=== PATIENT | male | born 1955 | race Caucasian/White ===

== ENCOUNTER 2023-12-11 18:31 | Emergency (ER) | payer BC, SELFPAY ==
[2023-12-11 18:42] VITALS: BP 122/85; PULSE 91; RESP 20; TEMP 36.9; O2SAT 97; BMI 41.1
--- NOTE | 2023-12-11 19:27 | ED.GENADULT ---
HPI - General Adult General Date Seen: 12/11/23 Chief complaint: Unspecified Complaint, Adult Stated complaint: Bluish tinge to both legs Friday, now swollen Time Seen by Provider: 12/11/23 19:03 Source: patient and RN notes reviewed Mode of arrival: ambulatory Limitations: no limitations History of Present Illness HPI narrative: Patient is a 68-year-old male here for evaluation of some swelling in his legs as well as a bluish discoloration. He says he 1st noted the blue color about 5 days ago. It runs from about mid thigh to mid calf in both legs. He says sometimes it is darker sometimes it is credit operations processor. He does not have any pain in the legs. He tells me he has been wearing the same jeans all week, they are not new jeans, and he has never noticed a bluish discoloration before. He did go on a road trip recently and has developed some swelling in his legs as well. He called the nurse line and was advised to come in. He also tells me he has been having some problems with his shoulders since last fall, and sometimes when he wakes up his hands or tingly. He is unsure whether all these are related. He does have borderline diabetes, high blood pressure, high cholesterol, hypothyroid. No history of DVT or PE. Does not smoke. His landlord brought him in. Related Data Home Medications Medication Instructions Recorded Confirmed amlodipine 5 mg tablet 5 mg PO DAILY 07/26/23 07/26/23 atorvastatin 80 mg tablet 80 mg PO DAILY 07/26/23 07/26/23 ketoconazole 2 % topical cream applic topical BID 07/26/23 07/26/23 levothyroxine 88 mcg tablet 88 mcg PO DAILY 07/26/23 07/26/23 lisinopril 20 1 tab PO DAILY 07/26/23 12/11/23 mg-hydrochlorothiazide 25 mg tablet chlorthalidone 25 mg tablet 25 mg PO DAILY 12/11/23 12/11/23 lisinopril 20 mg tablet 20 mg PO DAILY 12/11/23 12/11/23 potassium chloride 20 mEq 20 meq PO BID 12/11/23 12/11/23 tablet,extended release(part/cryst) Previous Rx's Medication Instructions Recorded amoxicillin 500 mg tablet 500 mg PO BID #14 tabs 07/26/23 benzonatate 100 mg capsule 100 mg PO TID PRN cough #30 caps 07/26/23 Allergies Allergy/AdvReac Type Severity Reaction Status Date / Time No Known Drug Allergies Allergy Verified 12/11/23 18:48 Review of Systems Status of ROS: Reports: 10 or more systems reviewed and unremarkable except as noted in History and below [facility] Social History Smoking Status: Never smoker Exam Narrative: Exam Narrative: Vital signs as noted above. In general, an alert, well-appearing patient. Head: Normocephalic, atraumatic. Eyes: Pupils are equal reactive. Extraocular movements are full. Conjunctivae are normal. ENT: Mucous membranes are moist. Throat is normal. Neck: Supple without lymphadenopathy. Heart: Regular rate and rhythm. No murmur or rub. Lungs: Clear bilaterally. No increased work of breathing, crackles or wheezes. Abdomen: Soft and nontender. No organomegaly. Extremities: Legs have a bluish tint to them from mid thigh to mid calf. Legs are warm to the touch throughout. He does have some edema noted in bilateral lower extremities, in the pretibial area. He does not have calf tenderness, pulses are intact, distal CMS is normal. He has no tenderness or palpable cords throughout the legs. Neurologic: Patient is alert and oriented to person and place. Speech is fluent. Face is symmetric. Moves all extremities equally. Affect: Normal. Skin: Warm and dry. Well perfused. Const: Vital Signs, click to edit/add: Vital Signs - 24 hr 12/11/23 18:42 Temperature 98.4 F Pulse Rate [Pulse Oximeter] 91 Respiratory Rate 20 Blood Pressure [Ri ght Upper Arm] 122/85 Pulse Oximetry 97 Oxygen Delivery Me thod Room Air Documenting provider has reviewed patient's vital signs: yes Course Course ED Course: Patient had recent travel and does have a little bit of edema in his legs, this is likely physiologic but I will do a D-dimer, electrolytes, kidney function. With an alcohol swab, I was able to wipe off the bluish discoloration and I do think this is related to transfer from his [facility], not a perfusion issue. Labs are most notable for a potassium of 2.8, review of his medications shows that he had previously been on lisinopril/hydrochlorothiazide, this is been [place] he currently just takes lisinopril but he is now also on chlorthalidone. He is on potassium replacement of 20 mEq twice a day. It may be that he simply cannot tolerate the chlorthalidone. I have given him 40 mEq here, will have him increase to 60 mEq daily for few days here and then have him recheck with primary care. His D-dimer was 0.71, normal for age would be 0.67. I have relatively low suspicion based on exam and symptoms. He was motivated largely by the bluish discoloration which is in fact superficial only. He does not have other risk factors for DVT or PE and I think it is reasonable to observe at this point. If he is noticing more swelling or develops any pain in the legs ultrasound could be accomplished at that time. CBC showed a normal white blood cell count, hemoglobin of 12.8, metabolic panel otherwise is fairly unremarkable. Blood sugars 136, nonfasting. LFTs are unremarkable. TSH is pending and I will follow-up on that. TSH was mildly elevated, but free T4 was normal. Continue plan as outlined above. Vital Signs Vital signs: Initial Vital Signs Temperature 98.4 F 12/11/23 18:42 Temperature Source Temporal Artery Scan 12/11/23 18:42 Pulse Rate 91 12/11/23 18:42 Pulse Rhythm Regular 12/11/23 18:42 Respiratory Rate 20 12/11/23 18:42 Blood Pressure 122/85 12/11/23 18:42 Blood Pressure Mean 97 12/11/23 18:42 Blood Pressure Position Sitting 12/11/23 18:42 Pulse Oximetry 97 12/11/23 18:42 Oxygen Delivery Method Room Air 12/11/23 18:42 Vital Signs Temperature 98.4 F 12/11/23 18:42 Pulse Rate 91 12/11/23 18:42 Respiratory Rate 20 12/11/23 18:42 Blood Pressure 122/85 12/11/23 18:42 Pulse Oximetry 97 12/11/23 18:42 Oxygen Delivery Method Room Air 12/11/23 18:42 Temperature 98.4 F 12/11/23 18:42 Pulse Rate 91 12/11/23 18:42 Respiratory Rate 20 12/11/23 18:42 Blood Pressure 122/85 12/11/23 18:42 Pulse Oximetry 97 04/04/24 18:42 Oxygen Delivery Method Room Air 12/11/23 18:42 Medications Administered Medications: Discontinued Medications Generic Name Dose Route Start Last Admin Trade Name Estela PRN Reason Stop Dose Admin Potassium Bicarbonate 50 meq 12/11/23 20:05 12/11/23 20:13 Potassium Bicarb 25 Meq Effervescent Tab PO 12/11/23 20:06 50 meq ONCE ONE Administration Medical Decision Making Lab Data Labs: Lab Results 12/11/23 12/11/23 12/11/23 Range/Units 19:30 19:30 19:30 WBC 6.34 (4.50-11.00) K/uL RBC 4.17 L (4.30-5.90) m/uL Hgb 12.8 L (13.5-17.5) gm/dL Hct 37.5 (37.0-53.0) % MCV 90 (80-100) fL MCH 31 (26-34) pg MCHC 34 (32-36) gm/dL RDW Coeff of [place] 12.5 (11.5-15.5) % Plt Count 174 (140-440) K/uL Neut % (Auto) 69.6 (42.0-72.0) % Lymph % (Auto) 17.8 L (20-44) % [place] % (Auto) 9.8 (0.0-11.0) % Eos % (Auto) 2.5 (0.0-7.0) % Baso % (Auto) 0.3 (0.0-3.0) % Neut # (Auto) 4.41 (1.7-7.0) K/uL Lymph # (Auto) 1.10 (0.90-2.90) K/uL [place] # (Auto) 0.60 (0.00-0.90) K/UL Eos # (Auto) 0.16 (0.00-0.50) K/uL Baso # (Auto) 0.02 (0.00-0.30) K/uL Abs Immat Gran (auto) 0.00 (0.00-0.30) K/uL Imm/Tot Granulo (auto) 0.0 % D-Dimer Quant (PE/DVT) 0.71 H (0.00-0.50) ug/ml Sodium 134 L (135-149) mmol/L Potassium 2.8 L* (3.6-5.1) mmol/L Chloride 96 (96-114) mmol/L Carbon Dioxide 32 (20-32) mmol/L Anion Gap 6 L (7-15) mEq/L BUN 10 (7-30) mg/dL Creatinine 0.6 (0.5-1.5) mg/dL Estimated Creat Clear 69.35 Estimated GFR 106 ml/min Glucose 136 H (60-115) mg/dL Calcium 9.4 (8.4-10.6) mg/dL Total Bilirubin 0.8 Cancelled (0.1-1.5) mg/dL Direct Bilirubin 0.1 Cancelled (0.0-0.5) mg/dL AST 39 H (12-35) U/L ALT (4-50) U/L Alkaline Phosphatase (40-150) U/L Total Protein (6.0-8.3) g/dL Albumin (3.3-5.0) g/dL TSH (0.270-4.200) uIU/mL Free T4 (0.70-1.85) ng/dL 12/11/23 12/11/23 12/11/23 Range/Units 19:30 19:30 19:30 WBC (4.50-11.00) K/uL RBC (4.30-5.90) m/uL Hgb (13.5-17.5) gm/dL Hct (37.0-53.0) % MCV (80-100) fL MCH (26-34) pg MCHC (32-36) gm/dL RDW Coeff of [place] (11.5-15.5) % Plt Count (140-440) K/uL Neut % (Auto) (42.0-72.0) % Lymph % (Auto) (20-44) % [place] % (Auto) (0.0-11.0) % Eos % (Auto) (0.0-7.0) % Baso % (Auto) (0.0-3.0) % Neut # (Auto) (1.7-7.0) K/uL Lymph # (Auto) (0.90-2.90) K/uL [place] # (Auto) (0.00-0.90) K/UL Eos # (Auto) (0.00-0.50) K/uL Baso # (Auto) (0.00-0.30) K/uL Abs Immat Gran (auto) (0.00-0.30) K/uL Imm/Tot Granulo (auto) % D-Dimer Quant (PE/DVT) (0.00-0.50) ug/ml Sodium (135-149) mmol/L Potassium (3.6-5.1) mmol/L Chloride (96-114) mmol/L Carbon Dioxide (20-32) mmol/L Anion Gap (7-15) mEq/L BUN (7-30) mg/dL Creatinine (0.5-1.5) mg/dL Estimated Creat Clear Estimated GFR ml/min Glucose (60-115) mg/dL Calcium (8.4-10.6) mg/dL Total Bilirubin (0.1-1.5) mg/dL Direct Bilirubin (0.0-0.5) mg/dL AST Cancelled (12-35) U/L ALT 34 Cancelled (4-50) U/L Alkaline Phosphatase 102 Cancelled (40-150) U/L Total Protein 6.8 (6.0-8.3) g/dL Albumin (3.3-5.0) g/dL TSH (0.270-4.200) uIU/mL Free T4 (0.70-1.85) ng/dL 12/11/23 12/11/23 Range/Units 19:30 19:30 WBC (4.50-11.00) K/uL RBC (4.30-5.90) m/uL Hgb (13.5-17.5) gm/dL Hct (37.0-53.0) % MCV (80-100) fL MCH (26-34) pg MCHC (32-36) gm/dL RDW Coeff of [place] (11.5-15.5) % Plt Count (140-440) K/uL Neut % (Auto) (42.0-72.0) % Lymph % (Auto) (20-44) % [place] % (Auto) (0.0-11.0) % Eos % (Auto) (0.0-7.0) % Baso % (Auto) (0.0-3.0) % Neut # (Auto) (1.7-7.0) K/uL Lymph # (Auto) (0.90-2.90) K/uL [place] # (Auto) (0.00-0.90) K/UL Eos # (Auto) (0.00-0.50) K/uL Baso # (Auto) (0.00-0.30) K/uL Abs Immat Gran (auto) (0.00-0.30) K/uL Imm/Tot Granulo (auto) % D-Dimer Quant (PE/DVT) (0.00-0.50) ug/ml Sodium (135-149) mmol/L Potassium (3.6-5.1) mmol/L Chloride (96-114) mmol/L Carbon Dioxide (20-32) mmol/L Anion Gap (7-15) mEq/L BUN (7-30) mg/dL Creatinine (0.5-1.5) mg/dL Estimated Creat Clear Estimated GFR ml/min Glucose (60-115) mg/dL Calcium (8.4-10.6) mg/dL Total Bilirubin (0.1-1.5) mg/dL Direct Bilirubin (0.0-0.5) mg/dL AST (12-35) U/L ALT (4-50) U/L Alkaline Phosphatase (40-150) U/L Total Protein Cancelled (6.0-8.3) g/dL Albumin 4.0 Cancelled (3.3-5.0) g/dL TSH 4.370 H (0.270-4.200) uIU/mL Free T4 1.30 (0.70-1.85) ng/dL Discharge Plan Discharge Clinical Impression: Hypokalemia Patient Disposition: Home, Self-Care Condition: Stable Instructions: Hypokalemia (ED) Additional Instructions: Elevate your legs as able. If you note significantly worsening swelling, particularly if asymmetric, if you develop pain or redness in 1 or both of your legs, return to the ER for re-evaluation. Otherwise, please make an appointment to follow up with Dr. Aguirre in the next week or so. I would like you to increase your potassium to 60 mEq (3 tablets) a day until you see Dr. Aguirre in follow-up. Your blood pressure medicines may need to be adjusted so the your not taking medications which cause you to lose potassium, I would ask you to discuss this with Dr. Aguirre. Prescriptions: No Action levothyroxine 88 mcg tablet 88 mcg PO DAILY ketoconazole 2 % cream topical BID amlodipine 5 mg tablet 5 mg PO DAILY lisinopril-hydrochlorothiazide 20-25 mg tablet 1 tab PO DAILY Hold Instructions: Doctor's Order atorvastatin 80 mg tablet 80 mg PO DAILY amoxicillin 500 mg tablet 500 mg PO BID Qty: 14 0RF benzonatate 100 mg capsule 100 mg PO TID PRN (Reason: cough) Qty: 30 1RF lisinopril 20 mg tablet 20 mg PO DAILY chlorthalidone 25 mg tablet 25 mg PO DAILY potassium chloride 20 mEq tablet,ER particles/crystals 20 meq PO BID Follow Up/Referrals: Tab Aguirre MD [Primary Care Provider] - Stand Alone Forms: [employer] Info Instructions
[2023-12-11 19:37] LABS: Basophils Absolute Auto 0.02 K/uL (0.00-0.30); Basophils Percent Auto 0.3 % (0.0-3.0); Eosinophils Absolute Auto 0.16 K/uL (0.00-0.50); Eosinophils Percent Auto 2.5 % (0.0-7.0); Hematocrit 37.5 % (37.0-53.0); Hemoglobin* 12.8 gm/dL (13.5-17.5); Lymphocytes Percent Auto 17.8 % (20-44); Mean Corpuscular HGB Conc 34 gm/dL (32-36); Mean Corpuscular Hemoglobin 31 pg (26-34); Mean Corpuscular Volume 90 fL (80-100); Monocytes Percent Auto 9.8 % (0.0-11.0); Neutrophils Absolute Auto 4.41 K/uL (1.7-7.0); Neutrophils Percent Auto 69.6 % (42.0-72.0); Platelet Count* 174 K/uL (140-440); RDW Coefficient of Variation % 12.5 % (11.5-15.5); Red Blood Count 4.17 m/uL (4.30-5.90); White Blood Count* 6.34 K/uL (4.50-11.00)
[2023-12-11 19:42] LABS: Slide Review Reflex No
[2023-12-11 19:54] LABS: Chloride* 96 mmol/L (96-114); Sodium* 134 mmol/L (135-149)
[2023-12-11 19:55] LABS: D Dimer Quantitative* 0.71 ug/ml (0.00-0.50)
[2023-12-11 19:56] LABS: Creatinine* 0.6 mg/dL (0.5-1.5); Est. Creatinine Clearance* 69.35; Estimated Glomerular Filt Rate 106 ml/min
[2023-12-11 19:57] LABS: Alanine Aminotransferase* 34 U/L (4-50); Alkaline Phosphatase* 102 U/L (40-150); Anion Gap 6 mEq/L (7-15); Aspartate Amino Transferase* 39 U/L (12-35); Bilirubin Direct* 0.1 mg/dL (0.0-0.5); Bilirubin Total* 0.8 mg/dL (0.1-1.5); Blood Urea Nitrogen* 10 mg/dL (7-30); Calcium* 9.4 mg/dL (8.4-10.6); Carbon Dioxide* 32 mmol/L (20-32); Glucose* 136 mg/dL (60-115); Total Protein* 6.8 g/dL (6.0-8.3)
[2023-12-11 19:59] LABS: Potassium* 2.8 mmol/L (3.6-5.1)
[2023-12-11] MEDS: POTASSIUM BICARB 25 MEQ EFFERVESCENT TAB 50 MEQ PO (20:13)
== END 2023-12-11 20:42 | disposition home or self-care (01) ==
PROVIDERS: Emergency Provider Emergency Medicine; PCP Family Medicine
DX: E87.6 Hypokalemia (principal)
CPT/HCPCS: 36415; 80048; 80076; 84439; 84443; 85025; 85379; 99283; 99284; A9270